=== PATIENT | female | born 1945 | race Caucasian/White ===

== ENCOUNTER 2022-07-05 11:43 | Inpatient (IN) | payer OTHER, BC ==
[2022-07-05] MEDS ORDERED: FLUCONAZOLE 50 MG TABLET PO ONE (12:16)
[2022-07-05] MEDS ORDERED: PIPERACILLIN/TAZOB 4.5 GM 4.5 GM in DEXTROSE 5%-WATER 100 ML IVPB ONE (12:16)
[2022-07-05] MEDS ORDERED: FLUCONAZOLE 150 MG TABLET PO ONE (12:36)
[2022-07-05] MEDS ORDERED: PIPERACILLIN/TAZOBACTAM 4.5 GM VIAL IVPB ONE (12:36)
[2022-07-05 12:52] LABS: EPITHELIAL CELLS FEW /hpf
[2022-07-05 13:09] LABS: HEMATOCRIT 40.9 % (32.4-45.2); HEMOGLOBIN 13.9 G/dL (10.7-15.3); MCH 32.8 pg (25.7-33.7); MCHC 33.9 g/dl (32.0-36.0); MEAN CELL VOLUME 96.9 fl (80-96); MEAN PLT VOLUME 7.2 fl (7.5-11.1); PLATELET COUNT 264.8 10^3/uL (134-434); RBC 4.22 10^6/uL (3.60-5.2); RDW 14.9 % (11.6-15.6); WHITE BLOOD COUNT 11.1 10^3/uL (4.0-10.8)
[2022-07-05 13:16] LABS: BILIRUBIN,TOTAL 0.6 mg/dl (0.2-1); CALCIUM 9.5 mg/dl (8.5-10); CREATININE 0.9 mg/dl (0.55-1.3); PLATELET ESTIMATE ADEQUATE; TOT PROT 7.6 g/dl (6.4-8.2)
[2022-07-05] MEDS ORDERED: ZINC OXIDE 20% TOPICAL OINTMENT 30 GM TUBE TP ONE (14:48)
[2022-07-05] MEDS ORDERED: ACETAMINOPHEN 325 MG TABLET (FP) PO PRN (14:56)
[2022-07-05] MEDS ORDERED: LACTOBACILLUS ACIDOPHILUS 1 TABLET PO SCH (15:00)
[2022-07-05] MEDS ORDERED: LACTOBACILLUS ACIDOPHILUS 1 TABLET PO ONE (15:36)
[2022-07-05 16:19] VITALS: BMI 20.3
[2022-07-05] MEDS ORDERED: PIPERACILLIN/TAZOB 2.25 GM 2.25 GM in DEXTROSE 5%-WATER - 50 ML IVPB SCH ×3 (18:00)
[2022-07-05] MEDS: LACTOBACILLUS ACIDOPHILUS 1 TABLET PO SCH (21:31)
[2022-07-05] MEDS: ZINC OXIDE 20% TOPICAL OINTMENT 30 GM TUBE TP SCH (21:31)
[2022-07-06] MEDS: PIPERACILLIN/TAZOB 3.375 GM 3.375 GM in DEXTROSE 5%-WATER - 50 ML IVPB SCH ×2 (01:08→10:04)
[2022-07-06 09:10] LABS: ALBUMIN 3.6 g/dl (3.4-5.0); BILIRUBIN,TOTAL 0.8 mg/dl (0.2-1); CREATININE 0.9 mg/dl (0.55-1.3); TOT PROT 6.9 g/dl (6.4-8.2)
[2022-07-06 09:11] LABS: HEMATOCRIT 39.1 % (32.4-45.2); HEMOGLOBIN 12.9 G/dL (10.7-15.3); MCH 31.8 pg (25.7-33.7); MCHC 33.1 g/dl (32.0-36.0); MEAN CELL VOLUME 96.3 fl (80-96); MEAN PLT VOLUME 7.5 fl (7.5-11.1); PLATELET COUNT 257.6 10^3/uL (134-434); RBC 4.06 10^6/uL (3.60-5.2); RDW 14.3 % (11.6-15.6); WHITE BLOOD COUNT 8.1 10^3/uL (4.0-10.8)
[2022-07-06] MEDS: ENOXAPARIN NA (PORCINE) 40 MG/0.4 ML DISP.SYRIN SQ SCH (10:05)
[2022-07-06 10:06] LABS: CALCIUM 9.2 mg/dl (8.5-10)
[2022-07-06] MEDS: FLUCONAZOLE 100 MG TABLET (UD) PO SCH (10:06)
[2022-07-06] MEDS: ZINC OXIDE 20% TOPICAL OINTMENT 30 GM TUBE TP SCH ×2 (10:06→21:03)
[2022-07-06] MEDS: AMPICILLIN NA/SULBACTAM NA 1.5 GM in SODIUM CHLORIDE 100 ML IVPB SCH ×2 (14:51→21:03)
[2022-07-06] MEDS: LACTOBACILLUS ACIDOPHILUS 1 TABLET PO SCH (21:03)
[2022-07-07] MEDS: AMPICILLIN NA/SULBACTAM NA 1.5 GM in SODIUM CHLORIDE 100 ML IVPB SCH ×4 (02:08→21:40)
[2022-07-07] MEDS: ENOXAPARIN NA (PORCINE) 40 MG/0.4 ML DISP.SYRIN SQ SCH (09:04)
[2022-07-07] MEDS: ZINC OXIDE 20% TOPICAL OINTMENT 30 GM TUBE TP SCH ×3 (09:04→21:42)
[2022-07-07] MEDS: FLUCONAZOLE 100 MG TABLET (UD) PO SCH (09:05)
[2022-07-07 10:15] LABS: BASO % 0.3 % (0-2.0); EOS % 8.7 % (0-4.5); HEMATOCRIT 38.6 % (32.4-45.2); HEMOGLOBIN 12.5 GM/dL (10.7-15.3); LYMPH % 18.3 % (8-40); MCH 30.7 pg (25.7-33.7); MCHC 32.5 g/dl (32.0-36.0); MEAN CELL VOLUME 94.5 fl (80-96); MEAN PLT VOLUME 7.5 fl (7.5-11.1); MONO % 9.8 % (3.8-10.2); NEUT % 62.9 % (42.8-82.8); PLATELET COUNT 263 10^3/uL (134-434); RBC 4.09 M/mm3 (3.60-5.2); RDW 14.7 % (11.6-15.6)
[2022-07-07 18:12] VITALS: RESP 17
[2022-07-07] MEDS: LACTOBACILLUS ACIDOPHILUS 1 TABLET PO SCH (21:40)
[2022-07-08] MEDS: AMPICILLIN NA/SULBACTAM NA 1.5 GM in SODIUM CHLORIDE 100 ML IVPB SCH ×2 (03:08→09:19)
[2022-07-08 05:59] VITALS: BP 139/57; PULSE 74; TEMP 98.3
[2022-07-08] MEDS: FLUCONAZOLE 100 MG TABLET (UD) PO SCH (09:19)
[2022-07-08] MEDS: ENOXAPARIN NA (PORCINE) 40 MG/0.4 ML DISP.SYRIN SQ SCH (09:19)
[2022-07-08] MEDS: ZINC OXIDE 20% TOPICAL OINTMENT 30 GM TUBE TP SCH (09:19)
== END 2022-07-08 12:37 | disposition home or self-care (01) | DRG 758 ==
LOC: FER 11:43 → FM/S 13:31
PROVIDERS: ADMIT Internal Medicine
DX: N76.0 Acute vaginitis (principal); B37.49 Other urogenital candidiasis; I10 Essential (primary) hypertension; E78.5 Hyperlipidemia, unspecified; B96.81 Helicobacter pylori [H. pylori] as the cause of diseases classified elsewhere; B37.31 Acute candidiasis of vulva and vagina
CPT/HCPCS: 0241U-QW; 36415; 74177-TC; 80053; 81003; 81015; 85025; 87040; 87086; 93005; 99285-25; Q9967